=== PATIENT | female | born 1965 | race Caucasian/White ===

== ENCOUNTER 2021-11-05 02:49 | Emergency (ER) | payer MEDICAID ==
[~2021-11-05] VITALS: Ht 165.1 cm; Wt 64.4 kg
[2021-11-05 02:55] VITALS: BP_SYST 89
--- NOTE | 2021-11-05 02:55 | NUR ---
Placed in room 5 . Placed on bus driver/monitor, blood pressure machine and pulse oximeter. To gown for exam. Side rails up.
--- NOTE | 2021-11-05 02:56 | NUR ---
ER at bedside examining patient.
[2021-11-05] MEDS ORDERED: ACETAMINOPHEN 325 MG TABLET PO ONE (03:00)
--- NOTE | 2021-11-05 03:25 | NUR ---
REPORT RECEIVED, PT LAYING IN BED, AAOX3, REPORTS BEING IN BATHROOM, HAD SYNCOPAL EPISODE WITH LOC, HIT HEAD IN TUB-SMALL 1CM LAC TO OCCIPITAL REGION, BLEEDING CONTROLLED. PAIN 7/10 AT THIS TIME. PT ADMITS TO DRINKING ALCOHOL AND LOING BALANCE, DTR AT BEDSIDE. IV FLUIDS INFUSING TO RT FA, TOLERATING WELL. SAFETY PRECAUTIONS IN PLACE. VSS.
[2021-11-05] MEDS ORDERED: ACETAMINOPHEN 325 MG TABLET ONE (03:32)
--- NOTE | 2021-11-05 03:36 | NUR ---
PT TO CT SCAN VIA [facility].
[2021-11-05 03:43] LABS: BASOPHILS % (AUTO) 0.5 % (0.0-2.0); EOSINOPHILS # (AUTO) 0.1 K/uL (0.0-0.4); EOSINOPHILS % (AUTO) 1.3 % (0.0-4.0); HEMATOCRIT 43.2 % (36-48); HEMOGLOBIN 14.5 g/dL (12.0-16.0); LYMPHOCYTES # (AUTO) 1.9 K/uL (1.0-5.5); LYMPHOCYTES % (AUTO) 24.4 % (20.5-51.5); MEAN CORPUSCULAR HEMOGLOBIN 33 pg (27-31); MEAN CORPUSCULAR HGB CONC 34 % (32-36); MEAN CORPUSCULAR VOLUME 99 fL (79.0-98.0); MONOCYTES # (AUTO) 0.6 K/uL (0.0-1.0); NEUTROPHILS # (AUTO) 5.1 K/uL (1.8-7.7); NEUTROPHILS % (AUTO) 65.8 % (40.0-70.0); PLATELET COUNT (AUTO) 206 K/uL (130-430); RED BLOOD CELL COUNT(AUTO) 4.36 MIL/uL (4.2-6.2); RED CELL DISTRIBUTION WIDTH 13.2 % (9.0-15.0); WHITE BLOOD COUNT (AUTO) 7.8 K/uL (4.8-10.8)
--- NOTE | 2021-11-05 04:02 | NUR ---
PT REPORTS FEELING BETTER AFTER PO TYLENOL, WOUND CLEANSED, TOLERATED WELL.
[2021-11-05 04:20] LABS: CALCIUM 8.9 mg/dL (8.4-11.0); CREATININE 1.04 mg/dL (0.55-1.30); POTASSIUM 3.4 mmol/L (3.5-5.1)
[2021-11-05 04:25] LABS: ALBUMIN 3.5 g/dL (3.4-4.8); TOTAL BILIRUBIN 0.1 mg/dL (0.0-1.0)
--- NOTE | 2021-11-05 04:49 | NUR ---
DR BENAVIDES AT BEDSIDE FOR RE-CHECK.
--- NOTE | 2021-11-05 04:49 | NUR ---
PT AMBULATED IN HALLWAY WITH STEADY GAIT. DTR AT BEDSIDE.
--- NOTE | 2021-11-05 05:03 | NUR ---
Patient given written and verbal discharge instructions and verbalizes understanding. ER MD discussed with patient the results and treatment provided. Patient in stable condition. ID arm band removed. IV catheter removed intact and dressing applied, no active bleeding. Patient educated on pain management and to follow up with PMD. Pain Scale . Opportunity for questions provided and answered. Medication side effect fact sheet provided.
[2021-11-05 05:05] VITALS: BP_SYST 103
== END 2021-11-05 05:05 | disposition home or self-care (01) ==
LOC: SED 02:49
DX: S01.01XA Laceration without foreign body of scalp, initial encounter (principal); R55 Syncope and collapse; I10 Essential (primary) hypertension; W18.39XA Other fall on same level, initial encounter; Y93.89 Activity, other specified; Y92.89 Other specified places as the place of occurrence of the external cause; Y99.8 Other external cause status
CPT/HCPCS: 36415; 70450-TC; 72125-TC; 76376; 80053; 82962; 85025; 93005; 99285